=== PATIENT | female | born 1950 | race Caucasian/White ===

== ENCOUNTER 2019-04-05 10:19 | Outpatient (CLI) | payer MEDICARE ==
--- NOTE | 2019-04-12 10:55 | Mammography Report ---
Reason: ROUTINE MAMMO Procedure Date: 04/05/2019 Accession Number: [id number] / [id number] Procedure: NORBERTO - Screening Mammo w/Maximus CPT Code: Final Report FULL RESULT: EXAM: Screening Mammo w/Maximus DATE: 04/05/2019 10:47 AM CLINICAL HISTORY: Screening encounter. History of nulliparity. TECHNIQUE: (B) - Bilateral CC and MLO views were obtained. COMPARISON: 03/16/2017 through 10/31/2013. PARENCHYMAL PATTERN: (A) - The breast(s) demonstrate(s) scattered fibroglandular densities. FINDINGS: There are no suspicious masses, calcifications, or areas of distortion. IMPRESSION: Negative examination. BI-RADS category 1. RECOMMENDATION: (ANNUAL) - Recommend routine annual screening mammography. BI-RADS CATEGORY: (1) - Negative. STANDARD QUALIFYING STATEMENTS: 1. This examination was not reviewed with the aid of Computer-Aided Detection (CAD). 2. A negative or benign imaging report should not preclude biopsy if clinically suspicious findings are present. 3. Dense breasts may obscure an underlying neoplasm. 4. This examination was reviewed with the aid of 3D breast imaging (tomosynthesis).
== END 2019-04-05 10:20 | disposition home or self-care (01) ==
LOC: DI 10:19
PROVIDERS: ATTEND Family Medicine
DX: Z12.31 Encounter for screening mammogram for malignant neoplasm of breast (principal)
CPT/HCPCS: 77063; 77067

== ENCOUNTER 2019-09-01 14:21 | Outpatient (CLI) | payer MEDICARE ==
--- NOTE | 2019-09-01 15:11 | XRAY Report ---
PROCEDURE: Foot 3 View LT INDICATIONS: L FOOT PAIN TECHNIQUE: 3 views of the foot were acquired. COMPARISON: No previous study is available for comparison. FINDINGS: Bones: There is a transverse, mildly displaced fracture at the base of the fifth proximal phalanx. Th e distal fracture fragment is mildly medially Irregularity of the medial first metatarsal head is lik jose related to a prior bunionectomy surgery. Soft tissues: No tibiotalar joint effusion. Achilles tendon appears normal. IMPRESSION: Transverse mildly displaced fracture at the base of the fifth proximal phalanx. Reviewed by: Alexandru Vance MD on 09/01/2019 3:10 PM PDT Approved by: Alexandru Vance MD on 09/01/2019 3:10 PM PDT Station ID: [id number]
== END 2019-09-01 14:22 | disposition home or self-care (01) ==
LOC: DI 14:21
PROVIDERS: ATTEND Internal Medicine
DX: S92.512A Displaced fracture of proximal phalanx of left lesser toe(s), initial encounter for closed fracture (principal)

== ENCOUNTER 2020-09-11 10:53 | Outpatient (CLI) | payer MEDICARE ==
--- NOTE | 2020-09-25 08:03 | Mammography Report ---
BILATERAL DIGITAL SCREENING MAMMOGRAM 3D/2D: 09/11/2020 CLINICAL: Routine screening. Comparison is made to exams dated: 04/05/2019 mammogram - [facility] and 03/16/2017, 12/31/2015, 12/28/2014 mammogram - [facility]. There are scattered fibroglandular elemen ts in both breasts. No significant masses, calcifications, or other findings are seen in either breast. There has been no significant interval change. IMPRESSION: NEGATIVE There is no mammographic evidence of malignancy. A 1 year screening mammogram is recommended. This exam was interpreted at Station ID: [id number]. NOTE: For mammograms, a report in lay terms will be sent to the patient. Approximately 15% of breast malignancies will not be visualized mammographically. In the management of a palpable breast mass, a negative mammogram must not discourage biopsy of a clinically suspicious lesion. Electronically Signed By: Edmund Diane M.D. slc/:09/24/2020 09:33:04 ACR BI-RADS Category 1: Negative 3341F PARENCHYMAL PATTERN: (A) - The breast(s) demonstrate(s) scattered fibroglandular densities. BI-RADS CATEGORY: (1) - 1 RECOMMENDATION: (ANNUAL) - Recommend routine annual screening mammography. [id number] 1 year screening LATERALITY: (B)
== END 2020-09-11 10:54 | disposition home or self-care (01) ==
LOC: DI 10:53
DX: Z12.31 Encounter for screening mammogram for malignant neoplasm of breast (principal)